=== PATIENT | female | born 1965 | race Caucasian/White ===

== ENCOUNTER → 2018-06-13 | Outpatient (CLI) | payer MEDICARE ==
[~2018-06-13] MED LIST: ASCO-262 PO; BACL20TA PO; BIOTIN 5000 MCG PO; CALC-722 PO; CITA40TA11 PO; FLUT1DIS28 IH; FURO-124 PO; GABA-488 PO; GLUC1TAB20 PO; HYDR12.5 PO; IBUP-2055 PO; LISI-552 PO; LORA10TA7 PO; MG T1TAB2 PO; MMT17NA NSEACH; MORP-34 PO; MORP15TA PO; OMEP20CA12 PO; POLY15DR14 OU; RT-ALBUINH IH; [UNRECOGNIZED DRUG - CODE] OU
[2018-06-13 23:13] LABS: AMPHETAMINE SCREEN, URINE NEGATIVE (NEGATIVE); BARBITURATE SCREEN URINE NEGATIVE (NEGATIVE); BENZODIAZEPINES SCREEN URINE NEGATIVE (NEGATIVE); CANNABINOID SCREEN, URINE NEGATIVE (NEGATIVE); COCAINE SCREEN URINE NEGATIVE (NEGATIVE); METHADONE STAT NEGATIVE (NEGATIVE); METHAMPHETAMINE SCREEN URINE S NEGATIVE (NEGATIVE); OPIATE SCREEN URINE POSITIVE (NEGATIVE); OXYCODONE STAT NEGATIVE (NEGATIVE); PROPOXYPHENE STAT NEGATIVE (NEGATIVE); TRICYCLIC ANTIDEPRESSANTS SCRE NEGATIVE (NEGATIVE)
== END ==
LOC: LAB 22:24
PROVIDERS: ATTEND Anesthesiology
DX: R52 Pain, unspecified (principal); Z79.891 Long term (current) use of opiate analgesic
CPT/HCPCS: 80306